=== PATIENT | male | born 1990 | race Caucasian/White ===

== ENCOUNTER 2020-10-10 16:41 | Observation (INO) ==
[2020-10-10 17:27] LABS: Basophils % 0.5 % (0.0-0.8); Eosinophils # 0.1 10*3/uL (0.0-0.87); Eosinophils % 1.3 % (0.00-10.9); Hematocrit 40.1 VOL% (42.0-52.0); Hemoglobin 13.3 GM/DL (14.0-18.0); Immature Granulocytes % 0.7 %; Immature Granulocytes Absolute 0.04 #; Lymphocytes # 1.3 10*3/uL (1.4-4.0); Lymphocytes % 22.8 % (21.2-54.2); Mean Corpuscular HGB Conc 33.2 GM/DL (32-36); Mean Corpuscular Volume 94.1 FL (87-102); Mean Platelet Volume 12.1 FL (9.6-12.0); Monocytes % 7.2 % (1.7-12.7); Neutrophils % 67.5 % (38.7-73.9); Platelet Count 233 T/CUMM (130-400); Red Blood Count 4.26 MC/CUMM (3.8-5.5); Red Cell Distribution Width 13.2 % (9.3-17.3); White Blood Count 5.5 T/CUMM (4-12)
[2020-10-10 17:41] LABS: Alanine Aminotransferase 2259 U/L (16-61); Albumin 2.5 G/DL (3.4-5.0); Alkaline Phosphatase 317 U/L (45-117); Aspartate Amino Transferase 646 U/L (0-37); Blood Urea Nitrogen 7 MG/DL (7-18); Calcium 7.8 MG/DL (8.5-10.1); Carbon Dioxide 30 MMOL/L (21-32); Estimated Glom Filtration Rate 129 ML/MIN; Glucose 93 MG/DL (74-106); Osmolality,Calculated 276.4 MOS/KG (273-304); Potassium 3.2 MMOL/L (3.5-5.1); Sodium 140 MMOL/L (136-145); Total Protein 5.7 G/DL (6.4-8.3)
[2020-10-10 17:43] LABS: Barbiturates Screen,Urine Negative (Negative); Benzodiazepines Screen,Urine Negative (Negative); Cannabinoid Screen,Urine Positive (Negative); Opiate Screen,Urine Negative (Negative); Phencyclidine Screen,Urine Negative (Negative)
[2020-10-10] MEDS ORDERED: POTASSIUM CHLORIDE 20 MEQ TABLET PO STA (17:55)
[2020-10-10 18:55] LABS: Amorphous Crystals,Urine Occasional /HPF (Few); Bilirubin,Urine Moderate mg/dL (Negative); Blood, Urine Negative (Negative); Glucose,Urine (UA) Negative (Negative); Ketones,Urine Negative (Negative); Mucus,Urine Occasional /LPF (Occasional); Nitrite,Urine Negative (Negative); Protein,Urine Negative; RBC,Urine 3 /HPF (0-4); Squamous Epithelial Cell,Urine Occasional /HPF (0-10); Urine Appearance CLOUDY (Clear); Urine Color Amber (Yellow); WBC,Urine 2 /HPF (0-6)
[2020-10-10 19:01] LABS: Hepatitis B Core IgM Quant 0.35 Index; Hepatitis B Surface Ag Quant < 0.10 Index; Hepatitis B Surface Ag Result Non-Reactive (NonReactive); Hepatitis C Virus Ab Quant < 0.02 Index; Hepatitis C Virus Ab Result Non-Reactive (NonReactive)
[2020-10-10] MEDS ORDERED: GLUCAGON 1 MG VIAL IM PRN (20:01)
[2020-10-10] MEDS ORDERED: DEXTROSE 50% 25 GM/50 ML VIAL IV PRN (20:01)
[2020-10-10] MEDS ORDERED: POTASSIUM CHLORIDE RIDER 10 MEQ in PREMIX 1 EACH IV PRN (20:09)
[2020-10-10] MEDS ORDERED: POTASSIUM CHLORIDE 20 MEQ TABLET PO PRN (20:09)
[2020-10-10] MEDS: SODIUM CHLOR 0.9% KCL 20 MEQ 20 MEQ/1,000 ML BAG IV SCH (20:42)
[2020-10-10] MEDS ORDERED: PIPERACILLIN/TAZOBACTAM 3,375 MG in SODIUM CHLORIDE 0.9% 100 ML IV STA (20:47)
[2020-10-10] MEDS ORDERED: ENOXAPARIN 60 MG/0.6 ML SYRINGE ONE (20:58)
[2020-10-10] MEDS: ENOXAPARIN 40 MG/0.4 ML SYRINGE SUBCUT SCH (21:07)
[2020-10-11] MEDS: ONDANSETRON 4 MG/2 ML VIAL IV PRN ×2 (01:40→07:36)
[2020-10-11 05:32] LABS: Basophils % 0.7 % (0.0-0.8); Eosinophils # 0.1 10*3/uL (0.0-0.87); Eosinophils % 0.9 % (0.00-10.9); Hematocrit 41.5 VOL% (42.0-52.0); Hemoglobin 14.2 GM/DL (14.0-18.0); Immature Granulocytes % 1.3 %; Immature Granulocytes Absolute 0.07 #; Lymphocytes # 1.2 10*3/uL (1.4-4.0); Lymphocytes % 22.4 % (21.2-54.2); Mean Corpuscular HGB Conc 34.2 GM/DL (32-36); Mean Corpuscular Volume 90.4 FL (87-102); Mean Platelet Volume 11.6 FL (9.6-12.0); Monocytes % 7.8 % (1.7-12.7); Neutrophils % 66.9 % (38.7-73.9); Platelet Count 221 T/CUMM (130-400); Red Blood Count 4.59 MC/CUMM (3.8-5.5); Red Cell Distribution Width 13.2 % (9.3-17.3); White Blood Count 5.5 T/CUMM (4-12)
[2020-10-11 05:47] LABS: Alanine Aminotransferase 1864 U/L (16-61); Albumin 2.4 G/DL (3.4-5.0); Alkaline Phosphatase 378 U/L (45-117); Aspartate Amino Transferase 475 U/L (0-37); Blood Urea Nitrogen 5 MG/DL (7-18); Calcium 7.6 MG/DL (8.5-10.1); Carbon Dioxide 22 MMOL/L (21-32); Estimated Glom Filtration Rate 132 ML/MIN; Glucose 94 MG/DL (74-106); HDL Cholesterol < 10 MG/DL (40-60); Osmolality,Calculated 271.7 MOS/KG (273-304); Sodium 138 MMOL/L (136-145); Total Protein 5.4 G/DL (6.4-8.3); Triglycerides 173 MG/DL (2-150); VLDL CHOLESTEROL 34.6 MG/DL
[2020-10-11 06:15] LABS: Platelet Estimate Adequate
[2020-10-11] MEDS: SODIUM CHLOR 0.9% KCL 20 MEQ 20 MEQ/1,000 ML BAG IV SCH ×2 (07:36→17:25)
[2020-10-11] MEDS: PANTOPRAZOLE 40 MG TABLET PO SCH (09:52)
[2020-10-11] MEDS ORDERED: ACETAMINOPHEN 500 MG TABLET PO ONE (14:58)
[2020-10-11] MEDS ORDERED: LOPERAMIDE 2 MG CAPSULE PO ONE (18:00)
[2020-10-11] MEDS: ENOXAPARIN 40 MG/0.4 ML SYRINGE SUBCUT SCH (21:26)
[2020-10-12] MEDS: SODIUM CHLOR 0.9% KCL 20 MEQ 20 MEQ/1,000 ML BAG IV SCH ×2 (03:09→13:48)
[2020-10-12 07:01] LABS: Albumin 2.9 G/DL (3.4-5.0); Bilirubin,Direct 4.82 MG/DL (0.0-0.20); Bilirubin,Indirect 0.9 MG/DL (0.0-1.0); Bilirubin,Total 5.7 MG/DL (0.2-1.0); Total Protein 6.5 G/DL (6.4-8.3)
[2020-10-12] MEDS: PANTOPRAZOLE 40 MG TABLET PO SCH (09:09)
[2020-10-12 12:24] VITALS: BP 126/56
[2020-10-12] MEDS ORDERED: ACETAMINOPHEN 500 MG TABLET PO ONE (14:45)
== END 2020-10-12 15:55 ==
LOC: EDUNIT# → EDBD → N.ED 16:41 → N.EDINP 16:41 → N.TELES 21:52
PROVIDERS: ADMIT Internal Medicine; ATTEND Internal Medicine